=== PATIENT | female | born 1995 ===

== ENCOUNTER 2017-11-10 18:31 | Emergency (ER) | payer OTHER ==
[2017-11-10 18:32] VITALS: BMI 24.5
[2017-11-10 18:59] VITALS: BP 136/66; PULSE 86; RESP 18; TEMP 98.5; O2SAT 100
--- NOTE | 2017-11-10 19:25 | ED PDOC ---
HPI: General Adult Time Seen by Provider: 11/10/17 19:19 Chief Complaint (Nursing): Abdominal Pain Chief Complaint (Provider): abd pain History Per: Patient, Family (Patient's is translating for patient in polish) Additional Complaint(s): 22 y/o female presents with abdominal pain for the past week since starting treatment for H pylori infection. Patient was started on amoxicillin, omeprazole, biaxin and bentyl but she is having difficulty tolerating the medications without having diarrhea and vomiting. She was seen yesterday at [facility] and received IV Pepcid and Zofran which did help. She was sent home with prescriptions for and Reglan but continued to vomit today. Patient complains of generalized weakness and has not been able to eat anything today. She is only tolerating sips of water. Past Medical History Reviewed: Historical Data, Nursing Documentation, Vital Signs Vital Signs: Last Vital Signs Temp 98.5 F 11/10/17 18:56 Pulse 86 11/10/17 18:56 Resp 18 11/10/17 18:56 BP 136/66 11/10/17 18:56 Pulse Ox 100 11/10/17 19:50 - Medical History PMH: Gastritis Other PMH: H pylori - Surgical History Surgical History: Endoscopy - Family History Family History: States: No Known Family Hx - Living Arrangements Living Arrangements: With Family - Social History Current smoker - smoking cessation education provided: No Alcohol: None Drugs: Denies - Home Medications Home Medications: Ambulatory Orders Medication Instructions Recorded Dicyclomine [Dicyclomine HCl] 10 mg PO TID PRN 11/09/17 Loperamide [Loperamide HCl] 2 mg PO Q6 #15 cap 11/09/17 Metoclopramide [Reglan] 10 mg PO Q8 PRN #10 tab 11/09/17 Omeprazole/Clarith/Amoxicillin 1 kit PO BID 11/09/17 [Omeclamox-Mulugeta 500 mg-500 mg-20 mg] - Allergies Allergies/Adverse Reactions: Allergies Allergy/AdvReac Type Severity Reaction Status Date / Time No Known Allergies Allergy Verified 11/10/17 18:56 Review of Systems ROS Statement: Except As Marked, All Systems Reviewed And Found Negative Constitutional: Positive for: Weakness. Negative for: Fever, Chills Cardiovascular: Negative for: Chest Pain Respiratory: Positive for: Cough Gastrointestinal: Positive for: Nausea, Vomiting, Abdominal Pain, Diarrhea Genitourinary Female: Negative for: Dysuria Physical Exam - Reviewed Nursing Documentation Reviewed: Yes Vital Signs Reviewed: Yes - Physical Exam Appears: Positive for: Well, Non-toxic, No Acute Distress Skin: Positive for: Normal Color. Negative for: Rash Eye Exam: Positive for: Normal appearance Cardiovascular/Chest: Positive for: Regular Rate, Rhythm Respiratory: Positive for: Normal Breath Sounds. Negative for: Wheezing, Respiratory Distress Gastrointestinal/Abdominal: Positive for: Soft. Negative for: Tenderness, Distended, Guarding, Rebound Back: Negative for: L CVA Tenderness, R CVA Tenderness Extremity: Positive for: Normal ROM Neurologic/Psych: Positive for: Alert, Oriented - ECG O2 Sat by Pulse Oximetry: 100 Pulse Ox Interpretation: Normal Medical Decision Making Medical Decision Makin22 y/o with abdominal pain Plan: Urine dip test CBC CMP Lipase NS bolus x 2 IV pepcid IV zofran Disposition - Clinical Impression Clinical Impression: Abdominal pain - Patient ED Disposition Is Patient to be Admitted: Transfer of Care - Disposition Disposition: Transfer of Care Disposition Time: 20:00 Condition: FAIR Forms: [employer] ([employer]) Patient Signed Over To: Alaina Vásquez Handoff Comments: Signed out pending diagnostic testing results and final disposition
[2017-11-10] MEDS ORDERED: Sodium Chloride 0.9% 1,000 ML IV STA (19:51)
[2017-11-10 20:09] LABS: BASO % 0.3 % (0.0-2.0); EOS % 0.3 % (0.0-4.0); HEMOGLOBIN 14.1 g/dL (12.0-16.0); LYMPH # 1.7 K/uL (1.0-4.3); LYMPH % 20.3 % (20.0-40.0); MEAN CORPUSCULAR HEMOGLOBIN 29.2 pg (27.0-31.0); MEAN PLATELET VOLUME 7.9 fl (7.2-11.7); MONO # 0.5 K/uL (0.0-0.8); MONO % 6.2 % (0.0-10.0); NEUT # 6.1 K/uL (1.8-7.0); NEUT % 72.9 % (50.0-75.0); RBC 4.81 Mil/uL (3.80-5.20); RED CELL DISTRIBUTION WIDTH 12.3 % (11.5-14.5); WHITE BLOOD COUNT 8.4 K/uL (4.8-10.8)
[2017-11-10 20:23] LABS: ALB/GLOB RATIO 1.2 (1.0-2.1); ALBUMIN 4.2 g/dL (3.5-5.0); ALT/SGPT 39 U/L (9-52); AST/SGOT 23 U/L (14-36); BLOOD UREA NITROGEN 8 mg/dl (7-17); CALCIUM 9.7 mg/dL (8.4-10.2); GFR NON-AFRICAN AMERICAN > 60; LIPASE 139 U/L (23-300)
--- NOTE | 2017-11-10 22:06 | ED PDOC ---
- Laboratory Results Result Diagrams: 11/10/17 20:05 11/10/17 20:05 - ECG O2 Sat by Pulse Oximetry: 100 Medical Decision Making Medical Decision Making: Pt feels better on re-evaluation. Discussed medications and how to take them. Disposition - Clinical Impression Clinical Impression: Abdominal pain - POA Present On Arrival: None - Disposition Referrals: Pablo Ren MD [Staff Provider] - Disposition: Routine/Home Disposition Time: 22:04 Condition: GOOD Instructions: H. pylori Infection Forms: [facility] (Angolan) Print Language: GHANAIAN
== END 2017-11-10 22:34 | disposition home or self-care (01) ==
LOC: H.ER 18:31
DX: R10.9 Unspecified abdominal pain (principal)
CPT/HCPCS: 80053; 83690; 85025; 96361; 96374; 96375; 99284; J2405; J7030

== ENCOUNTER 2018-06-11 20:06 | Emergency (ER) | payer OTHER ==
[2018-06-11 20:06] VITALS: BMI 24.5
[2018-06-11 20:52] VITALS: RESP 16; TEMP 98.7
--- NOTE | 2018-06-11 21:31 | ED PDOC ---
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 Denies fever, vomiting, cough, congestion, chest pain, shortness of breath, palpitations, changes in bowel movements, urinary symptoms, vaginal bleeding/discharge. Past Medical History Reviewed: Historical Data, Nursing Documentation, Vital Signs Vital Signs: Last Vital Signs Temp 98.7 F 06/11/18 20:52 Pulse 77 06/11/18 20:52 Resp 16 06/11/18 20:52 BP 122/71 06/11/18 20:52 Pulse Ox 100 06/11/18 20:52 - Medical History PMH: Gastritis - Surgical History Surgical History: Endoscopy - Family History Family History: States: Unknown Family Hx - Immunization History Hx Tetanus Toxoid Vaccination: No Hx Influenza Vaccination: No Hx Pneumococcal Vaccination: No - Home Medications Home Medications: Ambulatory Orders Medication Instructions Recorded Dicyclomine [Dicyclomine HCl] 10 mg PO TID PRN 11/09/17 Loperamide [Loperamide HCl] 2 mg PO Q6 #15 cap 11/09/17 Metoclopramide [Reglan] 10 mg PO Q8 PRN #10 tab 11/09/17 Omeprazole/Clarith/Amoxicillin 1 kit PO BID 11/09/17 [Omeclamox-Mulugeta 500 mg-500 mg-20 mg] Famotidine [Pepcid] 20 mg PO BID #28 tab 11/10/17 Ondansetron ODT [Zofran ODT] 4 mg PO QID #20 odt 11/10/17 - Allergies Allergies/Adverse Reactions: Allergies Allergy/AdvReac Type Severity Reaction Status Date / Time No Known Allergies Allergy Verified 11/10/17 18:56 Review of Systems ROS Statement: Except As Marked, All Systems Reviewed And Found Negative Gastrointestinal: Positive for: Nausea, Abdominal Pain Physical Exam - Reviewed Nursing Documentation Reviewed: Yes Vital Signs Reviewed: Yes - Physical Exam Appears: Positive for: Well, Non-toxic, No Acute Distress Head Exam: Positive for: ATRAUMATIC, NORMAL INSPECTION, NORMOCEPHALIC Skin: Positive for: Normal Color Eye Exam: Positive for: Normal appearance ENT: Positive for: Normal ENT Inspection Cardiovascular/Chest: Positive for: Regular Rate, Rhythm Respiratory: Positive for: Normal Breath Sounds Gastrointestinal/Abdominal: Positive for: Bowel Sounds, Soft, Tenderness (epigastric, suprapubic, LLQ) Back: Positive for: Normal Inspection Extremity: Positive for: Normal ROM Neurological/Psych: Positive for: Awake, Alert, Oriented (x3) - Laboratory Results Result Diagrams: 06/11/18 21:23 06/11/18 21:23 - ECG O2 Sat by Pulse Oximetry: 100 - Progress ED Course And Treament: upreg + -udip -cbc -cmp -beta hcg -type & screen -OB TV u/s EXAM: US Obstetrical, Complete <14 weeks CLINICAL HISTORY: Pain TECHNIQUE: Transvaginal and transabdominal imaging of the maternal pelvis and a <14 week gestation with image documentation. COMPARISON: None provided. FINDINGS: GESTATION: A small intrauterine gestational sac is noted measuring 1.1 x 0.5 x 1.2 cm which is out of range for age estimation. A tiny pole is detected measuring 2.1 mm. cardiac activity is not yet detected; but may be too early. Short-term reevaluation in 7-10 days is recommended. UTERUS: Unremarkable. No myometrial mass. CERVIX: Closed. Unremarkable. OVARIES: A 2.8 x 2.0 x 1.7 cm mixed cystic/solid lesion seen in the right ovary thought likely compatible with a hemorrhagic cyst. A 2.1 x 2.0 x 2.3 cm simple cyst is noted in the left ovary. No suspicious mass. FREE FLUID: No free fluid. IMPRESSION: 1. Early single IUP out of range for age estimation. Short-term reevaluation in 7-10 days is recommended. 2. cardiac activity is not yet detected; but it may be too early. 3. 2.8 x 1.7 cm hemorrhagic cyst in the right ovary. 4. 2.1 x 2.3 cm simple cyst in the left ovary. 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
[2018-06-11 21:54] LABS: BASO % 0.2 % (0.0-2.0); EOS % 0.5 % (0.0-4.0); HEMOGLOBIN 14.1 g/dL (12.0-16.0); LYMPH # 1.7 K/uL (1.0-4.3); LYMPH % 22.2 % (20.0-40.0); MEAN CELL VOLUME 85.6 fl (81.0-99.0); MEAN CORPUSCULAR HEMOGLOBIN 28.8 pg (27.0-31.0); MEAN CORPUSCULAR HGB CONC 33.6 g/dL (33.0-37.0); MEAN PLATELET VOLUME 7.9 fl (7.2-11.7); MONO # 0.4 K/uL (0.0-0.8); MONO % 5.3 % (0.0-10.0); NEUT # 5.4 K/uL (1.8-7.0); NEUT % 71.8 % (50.0-75.0); RBC 4.91 Mil/uL (3.80-5.20); WHITE BLOOD COUNT 7.6 K/uL (4.8-10.8)
[2018-06-11 21:58] LABS: SQUAMOUS EPITHIAL 1 /hpf (0-5); URINE BACTERIA OCC (<OCC); URINE BILIRUBIN NEGATIVE (NEGATIVE); URINE BLOOD NEGATIVE (NEGATIVE); URINE CLARITY CLEAR (Clear); URINE COLOR STRAW (YELLOW); URINE GLUCOSE (UA) NEG (NEGATIVE); URINE LEUKOCYTE ESTERASE NEG Leu/uL (Negative); URINE PROTEIN NEGATIVE (NEGATIVE); URINE UROBILINOGEN 0.2-1.0 mg/dL (0.2-1.0)
[2018-06-11 22:03] LABS: ALB/GLOB RATIO 1.6 (1.0-2.1); ALBUMIN 4.6 g/dL (3.5-5.0); ALT/SGPT 57 U/L (9-52); AST/SGOT 39 U/L (14-36); BLOOD UREA NITROGEN 7 mg/dl (7-17); CALCIUM 9.4 mg/dL (8.4-10.2); GFR NON-AFRICAN AMERICAN > 60
[2018-06-11 23:37] VITALS: BP 126/80; PULSE 82; O2SAT 99
--- NOTE | 2018-06-12 10:42 | US ---
Date of service: 06/11/2018 PROCEDURE: First trimester ultrasound Beta HCG results are pending. HISTORY: ; pain COMPARISON: None TECHNIQUE: Standard protocol for this study/examination. FINDINGS: LMP: Prior examinations from the current : TECHNIQUE: Real-time 2D imaging, duplex and color Doppler. FINDINGS: No pole identified. Gestational age Below the threshold for calculation of a reliable gestational age based on gestational sac measurement 0.93 cm Gestational age derived from LMP: 4 weeks 6 days DARYA based on LMP: 02/12/2019. DARYA based on biometry: Below the threshold for calculation of a reliable gestational age Gestational concordance cannot be determined. Yolk sac identified Cervix: No Cervical abnormalities: Negative examination for cervical dilatation or effacement. Closed cervix measuring 3.36 cm Subchorionic hemorrhage: None UTERUS: 4.1 x 4.9 x 6.6 cm. ADNEXA: Right: 1.8 x 3.2 x 4.9 cm. Septated cyst with debris 2 x 1.7 x 2.8 cm. Normal Doppler arterial waveform documented. Left: 3.1 x 3.2 x 3.5 cm. Septated cyst 2 x 2.1 x 2.3 cm cm normal Doppler arterial waveform documented Fluid in the cul-de-sac: None IMPRESSION: Well-formed gestational sac without pole. Yolk sac documented. Bilateral adnexal cysts. Concordant findings (preliminary report) provided by [facility].
== END 2018-06-11 23:35 | disposition home or self-care (01) ==
LOC: H.ER 20:06
DX: O26.91 Pregnancy related conditions, unspecified, first trimester (principal); R10.2 Pelvic and perineal pain; N83.202 Unspecified ovarian cyst, left side; N83.201 Unspecified ovarian cyst, right side